=== PATIENT | female | born 1940 | race African-American/Black ===

== ENCOUNTER → 2017-04-01 | Day surgery (SDC) | payer MEDICARE, BC ==
[~2017-04-01] MED LIST: ALPRAZOLAM0.25 MG PO; AMLODIPINE-BENA1 CAP PO; ASPIRIN81 M2 PO; ATORVASTATIN CA10 MG PO; BIOTIN2500 MCG PO; BIOTIN800 MCG; CENTRUM SILVER PO; DITROPAN5 MG PO; ESOMEPRAZOLE MA40 MG PO; FERROUS SULFATE PO; FISH OIL 1,001000 M1 PO; GABAPENTIN600 MG PO; GLUCOPHAGE500 MG PO; HYDROCODON-ACE1 EAC5 PO; LASIX PO; LEVOTHYROXINE75 MCG PO; LIPITOR PO; LOTENSIN20 MG PO; METFORMIN HCL500 M2 PO; MULTI-VITAMIN1 EAC1 PO; NEURONTIN600 MG PO; PERCOCET 7.5/321 TAB PO; TOPROL XL100 MG PO; TRIAMTERENE-HC1 EACH PO; TUMS500 MG PO; TYLENOL EXTRA500 M1 PO; VITAMIN D-32000 UNI1 PO; VITAMIN D1000 UNI1 PO; VITAMIN D2000 UNIT PO
--- NOTE | ~2017-04-01 | OR ---
Unit #: [id number] #: [id number] Patient: VON GÓMEZ [id number] [address] [place], [place] [address] [id number] O MR#: [id number] NAME: VON GÓMEZ ROOM: Date of Procedure: 04/01/2017 Admission Date: 04/01/2017 Surgeon: Chris Nicole M.D. : 1940 Attending Physician: Romain Nicole Referring Physician: Goldy Padilla M.D. Primary Care Physician: Ella Urias M.D. SURGERY CENTER OPERATIVE NOTE PROCEDURE PERFORMED Lumbar epidural steroid injection under x-ray guided needle placement. PREOPERATIVE DIAGNOSES 1. Acute lumbar radiculitis. 2. Spinal stenosis, lumbosacral spine. 3. Degenerative joint disease, lumbosacral spine. 4. Degenerative disk disease, lumbosacral spine. 5. Multiple level facet spondylosis. INDICATIONS FOR PROCEDURE The patient presents today with multiple weeks to months long history of crescendo pattern radicular pain, left greater than right, which has failed to respond to ongoing continuous conservative measures. She is in possession of plain films, which showed diffuse degenerative joint disease as well as facet spondylosis. After discussing the risks and benefits of proceeding today with an empiric L4-5 epidural steroid injection with a return to this clinic on 04/20/2017 for further evaluation. The patient agreed this would be the appropriate course of action. We also discussed and planned to obtain a CT scan unenhanced of her lumbosacral spine between now and the 04/20/2017 visit in order to more accurately direct future injections if other levels other than L4-5 were needed as well as to evaluate the potential for benefit if lumbar facet injections were considered. DESCRIPTION OF PROCEDURE Following these discussions, the patient was taken to the operating room, where she was prepped and draped in a sterile manner. Standard monitors were applied. She refused all forms of sedation, and the lumbar epidural space was accessed at the L4-5 level using loss of resistance technique and x-ray guidance. Needle placement was confirmed with an injection of 2 mL of Omnipaque. Approximately 80% of dye flow was in the superior direction. Following successful needle placement confirmation, the patient received an injectate containing 4 mL of normal saline and 80 mg of methylprednisolone. She tolerated this procedure well. She was discharged home with followup instructions, which included above. At the next visit, she will most likely receive an L5-S1 and L3-4 dual needle technique. Dictated by... Chris Nicole M.D. Unit #: [id number] #: [id number] Patient: VON GÓMEZ JULIO/liya TD: 04/01/2017 20:49 JOB #: [id number] CC: Goldy Padilla M.D. SURGERY CENTER OPERATIVE NOTE Page 1 of 1 X Romain Nicole MD X PROCEDURE OPERATIVE NOTE
== END | disposition home or self-care (01) ==
LOC: CCSC 10:56
DX: M51.17 Intervertebral disc disorders with radiculopathy, lumbosacral region (principal); M47.27 Other spondylosis with radiculopathy, lumbosacral region; M48.07 Spinal stenosis, lumbosacral region; K21.9 Gastro-esophageal reflux disease without esophagitis; E11.40 Type 2 diabetes mellitus with diabetic neuropathy, unspecified; E11.22 Type 2 diabetes mellitus with diabetic chronic kidney disease; I12.9 Hypertensive chronic kidney disease with stage 1 through stage 4 chronic kidney disease, or unspecified chronic kidney disease; N18.3 Chronic kidney disease, stage 3 (moderate); M81.0 Age-related osteoporosis without current pathological fracture; M19.90 Unspecified osteoarthritis, unspecified site; Z90.49 Acquired absence of other specified parts of digestive tract; Z96.651 Presence of right artificial knee joint; Z98.51 Tubal ligation status
CPT/HCPCS: 82947; J1040; J2250

== ENCOUNTER → 2017-04-06 | Outpatient (CLI) | payer MEDICARE, BC ==
--- NOTE | ~2017-04-06 | CT98 ---
[facility] A Service of [facility] & [facility] RADIOLOGY TEXT RESULTS PATIENT: VON GÓMEZ LOCATION: [facility] : [birth year] UNIT #: [id number] AGE: [address]: Romain Nicole MD SEX: F ORDER DR: [id number] [facility] [address] [facility]. [place], [place] [address] [id number] O MR#: [id number] Acc #: [id number] NAME: VON GÓMEZ : 1940 SEX: F STUDY DATE/TIME: 04/06/2017 13:12 UNIT: [facility] ROOM: STUDY DESCRIPTION: CT Lumbar Spine Wo Cont Attending Physician: Chris Nicole M.D. Referring Physician: Chris Nicole M.D. Ordering Physician: Chris Nicole M.D. Primary Care Physician: Ella Urias M.D. MEDICAL IMAGING REPORT This report is preliminary unless electronic signature is present EXAM Lumbar spine CT no contrast DATE OF STUDY 04/06/[address] un[address] lumbar [address] with multiplanar reformats. This CT exam was performed with one or more of the following radiation dose reduction techniques: automatic exposure control, adjustment of mA and/or kV according to patient size, and iterative reconstruction. COMPARISON Plain radiographs dated 05/11/2013. CLINICAL HISTORY Two month history of back pain radiating to left leg and hip with difficulty walking. FINDINGS There is grade 1 anterolisthesis at L4-5 without pars defect. There is slight dextroscoliosis primarily at 4-5 with slight lateral translation of 4 on 5. There is no fracture or bon erosion or destruction at any level. The paraspinous soft tissues are unremarkable. At L1-2, the disc, canal, and foramina are normal. At L2-3, there is a slight disc bulge but no more than borderline canal stenosis. However, there is moderate right and suqc-zc-xggsbccx left foraminal compromise due to disc and facet degeneration. At L3-4, there is a slight disc bulge but no canal stenosis. Ywfp-lh-ezqdovyg or moderate right and mild left foraminal stenosis. STS. [facility] A Service of [facility] & [facility] RADIOLOGY TEXT RESULTS PATIENT: VON GÓMEZ [facility] #: [id number] : [birth year] UNIT #: [id number] AGE: [address]: Romain Nicole MD SEX: F ORDER DR: At L4-5, anterolisthesis, disc, and endplate change and facet arthropathy cause wctvkgvn-al-tthirx or severe canal stenosis and severe left and wlpfgbfc-uc-xboxls right foraminal stenosis. At 5-1, there is perhaps mild canal stenosis, and lfog-wb-dcnqbbkx right and mild left foraminal stenosis. IMPRESSION 1. Degenerative anterolisthesis at 4-5 with canal and foraminal stenosis. Foraminal stenosis is slightly more pronounced on the left than right. 2. See above for additional odwmj-fi-psyvw details. No acute-appearing abnormality at any level. Dictated by... Preston Yoon M.D. THIS IS AN ELECTRONICALLY VERIFIED REPORT Preston Yoon M.D. at 04/09/2017 1:49 PM TEV/aa TD: 04/07/2017 09:13 JOB #: [id number] MEDICAL IMAGING REPORT Page 1 of 1 COPY
== END | disposition home or self-care (01) ==
LOC: CCAT 12:49
DX: M54.16 Radiculopathy, lumbar region (principal); M43.16 Spondylolisthesis, lumbar region; M41.9 Scoliosis, unspecified; M51.16 Intervertebral disc disorders with radiculopathy, lumbar region; M48.06 Spinal stenosis, lumbar region; M46.96 Unspecified inflammatory spondylopathy, lumbar region
CPT/HCPCS: 72131

== ENCOUNTER → 2017-04-20 | Day surgery (SDC) | payer MEDICARE, BC ==
--- NOTE | ~2017-04-20 | OR ---
Unit #: [id number] #: [id number] Patient: VON GÓMEZ [id number] [address] [place], [place] [address] [id number] O MR#: [id number] NAME: VON GÓMEZ ROOM: Date of Procedure: 04/20/2017 Admission Date: 04/20/2017 Surgeon: Chris Nicole M.D. : 1940 Attending Physician: Romain Nicole Primary Care Physician: Ella Urias M.D. SURGERY CENTER OPERATIVE NOTE PROCEDURE PERFORMED Lumbar epidural steroid injection under x-ray guided needle placement with provider administered conscious sedation. PREOPERATIVE DIAGNOSES 1. Acute lumbar radiculitis. 2. Spinal stenosis, lumbosacral spine. 3. Degenerative joint disease, lumbosacral spine. 4. Degenerative disk disease, lumbosacral spine. INDICATIONS FOR PROCEDURE The patient presents today status post one previous lumbar approach epidural steroid injection for an acute radiculitis, which had failed to respond to conservative therapy. The patient states she got minimal relief at best and that relief had abated by the time of her visit today. After discussing risks and benefits of proceeding today with an epidural steroid injection at the L5-S1 level with potential second needle access depend upon dye flow, the patient agreed this would be the appropriate course of action. DESCRIPTION OF PROCEDURE She was then taken to the operating room, where she was prepped and draped in a sterile manner. Standard monitors were applied. She was sedated with 1 mg of IV Versed and lumbar epidural space was accessed at the L5-S1 level using loss of resistance technique and x-ray guidance. Needle placement was confirmed with injection of 2 mL of Omnipaque and all dye flow was in the inferior direction. The L4-L5 level was also accessed again using loss of resistance technique and x-ray guidance. Again, the dye flow at the L4-L5 level was primarily 80% in the superior direction and 20% in the inferior. We have good coverage of L3-L4, L4-L5, and L5-S1 and the more distal sacral roots. Total x-ray time for this dual needle placement was 11 seconds. Following successful needle placement confirmation at the L4-L5 and L5-S1 levels, the patient received an injectate containing 4 mL normal saline and 40 mg of methylprednisolone at each level for a total injectate volume of 8 mL normal saline and 80 mg of methylprednisolone. She tolerated this procedure well. She was discharged home with followup instructions, which include an offer to return to this clinic as early as 07/29/2017 if we could be of further service to her. She is also instructed to follow up with [facility] to hopefully find relief from treatment of her facet arthropathy contribution to her pain. Unit #: [id number] #: [id number] Patient: VON GÓMEZ Dictated by... Evangelina Sarmiento/liya TD: 04/20/2017 23:48 JOB #: [id number] CC: Goldy Padilla M.D. SURGERY CENTER OPERATIVE NOTE Page 1 of 1 X Romain Nicole MD X PROCEDURE OPERATIVE NOTE
== END | disposition home or self-care (01) ==
LOC: CCSC 13:19
DX: M51.17 Intervertebral disc disorders with radiculopathy, lumbosacral region (principal); M47.27 Other spondylosis with radiculopathy, lumbosacral region; M48.07 Spinal stenosis, lumbosacral region; M19.90 Unspecified osteoarthritis, unspecified site; K21.9 Gastro-esophageal reflux disease without esophagitis; E03.9 Hypothyroidism, unspecified; Z79.899 Other long term (current) drug therapy; Z88.5 Allergy status to narcotic agent; Z79.84 Long term (current) use of oral hypoglycemic drugs; Z79.82 Long term (current) use of aspirin; Z98.51 Tubal ligation status; Z98.890 Other specified postprocedural states
CPT/HCPCS: 82947; J1040; J2250